=== PATIENT | female | born 1985 | race Caucasian/White ===

== ENCOUNTER → 2022-03-15 17:19 | Outpatient (BNVA) | payer BC, MEDICAID, SELFPAY | PROVIDERS: Visit Provider Emergency Medicine | DX: R68.89 Other general symptoms and signs (principal) | CPT/HCPCS: 87400 ==

== ENCOUNTER → 2022-07-27 12:22 | Outpatient (BNVA) | payer BC, MEDICAID, SELFPAY | PROVIDERS: Visit Provider Emergency Medicine | DX: Z20.822 Contact with and (suspected) exposure to COVID-19 (principal); R68.89 Other general symptoms and signs | CPT/HCPCS: 87426 ==

== ENCOUNTER → 2023-02-07 09:32 | Outpatient (BNVA) | payer BC, MEDICAID, SELFPAY | PROVIDERS: Referring Provider Family Medicine; Visit Provider Physician Assistant | DX: S46.012A Strain of muscle(s) and tendon(s) of the rotator cuff of left shoulder, initial encounter (principal); V86.59XA Driver of other special all-terrain or other off-road motor vehicle injured in nontraffic accident, initial encounter | CPT/HCPCS: 73030 ==

== ENCOUNTER 2023-03-15 10:17 | Outpatient (CLI) | payer BC, MEDICAID, SELFPAY ==
--- NOTE | 2023-03-15 10:15 | MR_ITS ---
WS: [id number] MRI LEFT SHOULDER HISTORY: Muscle strain and rotator cuff abnormality. COMPARISON: Radiograph 02/07/2023 TECHNIQUE: Multiplanar sequences of the shoulder joint are submitted. No significant AC joint arthritis. No significant subacromial impingement. No subacromial or subdelto id fluid. No os acromion. Biceps tendon in normal position. There is increased T2 signal and fluid near the rotator cuff interval and adjacent to the biceps tend on. This fluid is adjacent to the coracoacromial and coracohumeral ligaments although the ligaments t hemselves appear preserved. No rotator cuff muscle atrophy or edema. No tendinopathy or tears. No fractures or marrow edema. No l abral abnormality. MR/MR shoulder LT wo con* [id number] IMPRESSION: 1. No rotator cuff tear. 2. Small amount of edema in the rotator cuff interval and adjacent to the nette coacromial and coracohumeral ligaments although no tear is identified.
== END 2023-03-15 10:18 | disposition home or self-care (01) ==
LOC: RAD 10:21
PROVIDERS: PCP Physician Assistant; Visit Provider Physician Assistant
DX: S46.012A Strain of muscle(s) and tendon(s) of the rotator cuff of left shoulder, initial encounter (principal); X58.XXXA Exposure to other specified factors, initial encounter
CPT/HCPCS: 73221

== ENCOUNTER → 2023-09-11 14:13 | Outpatient (BNVA) | payer BC, MEDICAID, SELFPAY | PROVIDERS: PCP Physician Assistant; Visit Provider Emergency Medicine | DX: B34.9 Viral infection, unspecified (principal); Z20.822 Contact with and (suspected) exposure to COVID-19 | CPT/HCPCS: 87400; 87426 ==

== ENCOUNTER → 2023-11-20 13:31 | Outpatient (BNVA) | payer BC, MEDICAID, SELFPAY | PROVIDERS: PCP Physician Assistant; Visit Provider Nurse Practitioner Family | DX: R68.89 Other general symptoms and signs (principal) | CPT/HCPCS: 87400; 87426 ==

== ENCOUNTER → 2024-08-29 11:28 | Outpatient (BNVA) | payer BC, MEDICAID, SELFPAY | PROVIDERS: PCP Physician Assistant; Visit Provider Emergency Medicine | DX: S69.91XA Unspecified injury of right wrist, hand and finger(s), initial encounter (principal); X58.XXXA Exposure to other specified factors, initial encounter | CPT/HCPCS: 73110 ==

== ENCOUNTER → 2024-09-11 11:21 | Outpatient (BNVA) | payer BC, MEDICAID, SELFPAY | PROVIDERS: PCP Physician Assistant; Visit Provider Nurse Practitioner Family | DX: S96.912A Strain of unspecified muscle and tendon at ankle and foot level, left foot, initial encounter (principal); M25.572 Pain in left ankle and joints of left foot; W19.XXXA Unspecified fall, initial encounter; Y92.009 Unspecified place in unspecified non-institutional (private) residence as the place of occurrence of the external cause | CPT/HCPCS: 73610 ==

== ENCOUNTER → 2025-09-03 15:04 | Outpatient (BNVA) | payer BC, MEDICAID, SELFPAY | PROVIDERS: PCP Nurse Practitioner; Visit Provider Nurse Practitioner | DX: M19.021 Primary osteoarthritis, right elbow (principal); M25.721 Osteophyte, right elbow | CPT/HCPCS: 73080 ==

== ENCOUNTER → 2025-09-10 11:46 | Outpatient (BNVA) | payer BC, MEDICAID, SELFPAY | PROVIDERS: PCP Nurse Practitioner; Visit Provider Nurse Practitioner | DX: M25.521 Pain in right elbow (principal); R20.2 Paresthesia of skin | CPT/HCPCS: 73080 ==